=== PATIENT | female | born 1965 | race Caucasian/White ===

== ENCOUNTER 2020-06-07 07:26 | Outpatient (CLI) | payer OTHER, SELFPAY ==
--- NOTE | 2020-06-07 08:19 | ECG_ITS ---
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 Interpretive Statements NAME OF STUDY: LEXISCAN SESTAMIBI STRESS TEST INDICATION: Chest Pain, LEXISCAN STRESS TEST ORDERING PHYSICIAN: Unknown CLINICAL INFORMATION: Unknown INTERPRETATION: 1. The patient was brought to the laboratory where Lexiscan was infused over 20 seconds. The resting blood pressure was 151/95. Maximum blood pressure was 164/97. The resting heart rate was 71 beats per minute. The maximum heart rate is 101 beats per minute. 2. The baseline electrocardiogram reveals sinus rhythm with a right ventricular conduction delay but otherwise a normal tracing 3. With Lexiscan infusion, there were no ST segment changes to suggest ischemia. 4. The patient experienced no symptoms or arrhythmias during the examination. CONCLUSION: 1. Unremarkable Lexiscan infusion. 2. Nuclear imaging to follow. Electronically Signed On 06-07-2020 13:29:35 CDT by Deniz Escamilla M.D. [id number]
--- NOTE | 2020-06-07 08:21 | NMCV_ITS ---
NM iggy perf SPECT r/s* [id number] Lia Holm Age: 54 Gender: F : 1965 Exam Date: 06/07/2020 08:21 Ordering Phys: Daksha Judd Technologist: YON Campos Exam Location: [facility] Indications: CHEST PAIN STRESS TEST [facility] IMAGE PROTOCOL Rest/Stress 1 Lexiscan Day Radiopharmaceutical Dose (mCi) Administration Site Administered by Rest: Tc-99m 10.5 IV YON Campos Sestamibi Stress:Tc-99m 32.2 IV YON Russo Sestamibi Rest: 07-Jun-2020 60 Discovery 630 Stress: 07-Jun-2020 30 Discovery 630 0.4mg Lexiscan. Images obtained in supine and prone position. SPECT RESULTS Technical Quality: Excellent Raw Data Analysis: Normal Image Corrections: No attenuation or motion correction applied Summed Stress Score: 0 Summed Rest Score: 0 Summed Difference Score: 0 PERFUSION FINDINGS Small sized perfusion abnormality of mild severity of apical lateral wall on stress images FUNCTIONAL RESULTS (calculated via Gated SPECT) Stress Image LV EF (%): 77 Stress EDV (mL):78 TID: 0.98 Stress ESV (mL):18 FUNCTIONAL FINDINGS: The left ventricle is normal in size. Transient Ischemia Dilatation of 0.98. There is normal left ventricular systolic function. The left ventricular ejection fraction is normal with a value of 77%. There is normal left ventricular wall thickening. Normal end-diastolic and end-systolic volumes. IMPRESSIONS 1. Small sized reversible perfusion abnormality of mild severity of apical lateral wall. This may represent small area of ischemia in left anterior descending artery territory. However attenuation artifact cannot be completely ruled out. 2. Overall left ventricular systolic function is normal without regional wall motion abnormalities. 3. The left ventricular ejection fraction is normal with a value of 77%. 4. No prior similar studies to compare. Brenda Soto MD (Electronically Signed) Final Date: 10 June 2020 12:29 S
[2020-06-07 08:22] VITALS: BMI 35.6
[2020-06-07 09:51] VITALS: BP 164/97; PULSE 98
[2020-06-07] MEDS: regadenoson 0.4 Mg/5 ml Syringe IVP (09:51)
== END 2020-06-07 07:27 | disposition home or self-care (01) ==
PROVIDERS: Visit Provider Family Medicine
DX: R07.9 Chest pain, unspecified (principal)
CPT/HCPCS: 78452; 93017; A9500; J2785

== ENCOUNTER 2020-07-16 09:41 | Outpatient (CLI) | payer OTHER, SELFPAY ==
--- NOTE | 2020-07-16 09:47 | US_ITS ---
WS: [id number] RIGHT UPPER QUADRANT ULTRASOUND HISTORY: ATYPICAL CHEST PAIN/EPIGASTRIC PAIN COMPARISON: None available. Liver: 12.6 cm in length. Normal size liver. No mass or intrahepatic dilatation. Gallbladder: Stone filled gallbladder. No pericholecystic fluid or gallbladder wall thickening identi fied. CBD: 0.4 cm Pancreas: Normal size and echogenicity. Right kidney: 12.2 cm in length. Normal echogenicity with no mass or hydronephrosis. Aorta and IVC: Aorta. No ascites. US/US gall bladder [id number] IMPRESSION: 1. Cholelithiasis. Stone filled gallbladder without evidence for acute cholecy stitis. 2. No bile duct dilatation.
== END 2020-07-16 09:42 | disposition home or self-care (01) ==
LOC: RAD 09:43
PROVIDERS: PCP Family Medicine; Visit Provider Family Medicine
DX: R07.89 Other chest pain (principal); R10.13 Epigastric pain; K80.20 Calculus of gallbladder without cholecystitis without obstruction
CPT/HCPCS: 76705

== ENCOUNTER → 2020-10-14 10:06 | Outpatient (BNVA) | payer OTHER, SELFPAY | PROVIDERS: PCP Family Medicine; Visit Provider Nurse Practitioner Family | DX: Z20.828 Contact with and (suspected) exposure to other viral communicable diseases (principal); R43.0 Anosmia | CPT/HCPCS: 87635 ==

== ENCOUNTER 2022-03-11 21:12 | Emergency (ER) | payer OTHER, SELFPAY ==
[2022-03-11 21:21] VITALS: BP 167/105; PULSE 71; RESP 22; TEMP 36.6; O2SAT 95; BMI 38.4
--- NOTE | 2022-03-11 21:29 | W.ED.CHESTPA ---
HPI - Chest Pain General: Chief Complaint: Chest Pain Stated Complaint: Chest Pain\High Blood Pressure Time Seen by Provider: 03/11/22 21:28 History of Present Illness: Ms. Holm is a 56-year-old lady with history of hypertension who presents to the emergency department with chest pain. Symptom onset was about 7 PM and acute. She endorses a tight band around her chest associated with shortness of breath, diaphoresis, and nausea. This episode was moderate to severe in intensity and after approximately 30 minutes improved. She did notice hypertension associated with this with systolic blood pressure 210. She had similar episode a number of years ago and had a stress test at that time and was placed on beta-omi. Course is improved though still mildly present. No other specific changes in health, exacerbating, or alleviating factors identified. Patient took 162 mg of chewable aspirin at that time. Onset (ago): hour(s) Prior episodes: Yes Onset: during rest Pain location: substernal Severity: moderate Quality: tightness Relieving factors: nothing Exacerbating factors: nothing Associated symptoms: Reports diaphoresis, dyspnea and nausea Review of Systems General: Reports: 10 or more systems reviewed and unremarkable except in HPI and below Const: Reports: diaphoresis Resp: Reports: dyspnea GI: Reports: nausea PFSH ED PFSH: Medical History HTN (hypertension) Family History Other CAD (coronary artery disease) Denies family history of Clotting disorder Bleeding disorder Family history of premature coronary artery disease Social History Smoking and tobacco status: never smoked Physical Exam Const: COMMON NORMALS: alert GENERAL APPEARANCE: cooperative and well developed HENMT: COMMON NORMALS: normocephalic and atraumatic HEAD & SCALP: normocephalic and atraumatic Eye: COMMON NORMALS: conjunctivae normal CONJUNCTIVA: Yes conjunctivae normal SCLERA: sclerae normal Neck/C-Spine: COMMON NORMALS: supple GENERAL: Yes trachea midline Resp: COMMON NORMALS: clear to auscultation bilaterally EFFORT & INSPECTION: Yes able to speak in complete sentences AUSCULTATION: clear to auscultation bilaterally Cardio: COMMON NORMALS: regular rate and regular rhythm RATE: regular rate RHYTHM: regular rhythm GI: COMMON NORMALS: Soft to palpation PALPATION: Yes Soft to palpation and No Tenderness to palpation present (GI) PERCUSSION: normal to percussion Extremity: GENERAL: Yes normal exam except as noted and No edema Neuro: COMMON NORMALS: moves all extremities SENSORIUM/ORIENTATION: Yes alert and No Orientation impaired Psych: COMMON NORMALS: mental status grossly normal and Normal thought process present THOUGHT PROCESS: Normal thought process present Course ED course: - Patient was seen and evaluated by me at bedside - Patient placed on cardiac monitors, IV access obtained - Initial evaluation notable for exam as above - Labs and xrays personally interpreted by me. EKG from 2120 and 2325 personally interpreted by me demonstrating sinus rhythm with no evidence of STEMI. - Aspirin ordered - Labs notable for no leukocytosis, mild hemoconcentration. Metabolic panel without acute electrolyte derangement. Transaminitis. Delta troponin negative. - Imaging notable for no lobar consolidation or pneumothorax. - Upon serial reexamination after treatment the patient was improved - Based on patient history, evaluation, and testing as interpreted the most likely cause of the patient's condition is chest pain of uncertain etiology. - The results of ED evaluation were discussed with the patient including possible disposition options. Patient is moderate risk by heart score and I believe she does require further cardiac testing. I offered inpatient admission for stress test which the patient declined. I discussed heart score methodology and estimated risk of major adverse cardiac events. I offered to message case management regarding outpatient testing which the patient declined. She plans to discuss with her primary care provider. Additionally, with regards to the patient's transaminitis, I offered ultrasound of the right upper quadrant which the patient declined Overall clinical history is not consistent with cholecystitis and she does not have positive De La Fuente's on exam, more likely I believe that this may be related to fatty liver or other mild inflammatory process however I did recommend outpatient additional follow-up with her primary care provider for consideration of imaging. - I discussed prescriptions and/or symptomatic cares (if applicable) including appropriate and responsible use, followup plan, and return precautions. The patient verbalized understanding and felt safe for discharge. - Patient discharged in satisfactory condition. Note: Click bubbles or prepopulated rivera in note writing are used for assistance with data collection and billing and are inherently more limited than narrative and other text portions of this note. Please use narrative for additional clinical history and defer to narrative/free test for any case of contradictory information. If information appears in only free text or click bubble it should be considered present or absent as reported. Please contact note senior medical writer for clarifications of clinical information or contradictory information. MDM is a brief summary, contradictory or erroneous seeming information should be clarified and full note should be reviewed. Vital Signs: Vital signs: Vital Signs Temperature 97.8 F 03/11/22 21:21 Pulse Rate 65 03/12/22 00:27 Respiratory Rate 20 H 03/12/22 00:27 Blood Pressure 180/100 03/11/22 23:45 Pulse Oximetry 96 03/12/22 00:27 MDM - Chest Pain Medical Decision Making 56-year-old lady presenting to the emergency department due to chest pain. Symptoms improved at this time. Delta troponin negative. Offered admission however patient prefers outpatient follow-up and will schedule through primary care provider. Satisfactory for discharge with strict return precautions. Medical Records I reviewed the patient's medical records. Lab Data I reviewed the patient's lab results. : 03/11/22 21:39 03/11/22 21:39 Radiology Impressions Chest X-Ray 03/11/22 21:38 IMPRESSION: No acute findings. Laboratory Results WBC 10.0 10^3/uL (4.0-10.0) 03/11/22 21:39 RBC 5.48 10^6/uL (4.1-5.3) H 03/11/22 21:39 Hgb 16.0 g/dL (11.5-15.3) H 03/11/22 21:39 Hct 47.1 % (37.0-47.0) H 03/11/22 21:39 MCV 85.9 fl (81-99) 03/11/22 21:39 MCH 29.2 pg (28.0-34.0) 03/11/22 21:39 MCHC 34.0 g/dL (30.0-36.0) 03/11/22 21:39 RDW 12.2 % (12.1-15.1) 03/11/22 21:39 Plt Count 261 10^3/cmm (130-400) 03/11/22 21:39 MPV 10.1 fL (7.4-10.4) 03/11/22 21:39 Neut % (Auto) 76.7 % 03/11/22 21:39 Lymph % (Auto) 12.6 % 03/11/22 21:39 [place] % (Auto) 7.7 % 03/11/22 21:39 Eos % (Auto) 1.7 % 03/11/22 21:39 Baso % (Auto) 0.6 % 03/11/22 21:39 Neut # (Auto) 7.68 10^3/uL (1.8-7.7) 03/11/22 21:39 Lymph # (Auto) 1.3 10^3/uL (0.8-4.8) 03/11/22 21:39 [place]en # (Auto) 0.8 10^3/uL (0.2-0.9) 03/11/22 21:39 Eos # (Auto) 0.2 10^3/uL (0.0-0.8) 03/11/22 21:39 Baso # (Auto) 0.1 10^3/uL (0.0-0.1) 03/11/22 21:39 Nucleated RBC % (auto) 0 % 03/11/22 21:39 Nucleated RBCs # 0.0 /100WBC 03/11/22 21:39 Sodium 139 mmol/L (136-145) 03/11/22 21:39 Potassium 4.2 mmol/L (3.5-5.1) 03/11/22 21:39 Chloride 104 mmol/L (98-107) 03/11/22 21:39 Carbon Dioxide 23 mmol/L (22-29) 03/11/22 21:39 Anion Gap 16.2 (5-19) 03/11/22 21:39 BUN 12 mg/dL (6-20) 03/11/22 21:39 Creatinine 0.6 mg/dL (0.5-0.9) 03/11/22 21:39 GFR Calculation 103.4 mL/min (90-130) 03/11/22 21:39 Glucose 100 mg/dL (65-115) 03/11/22 21:39 Calculated Osmolality 288 mOsm/kg (285-295) 03/11/22 21:39 Calcium 9.2 mg/dL (8.5-10.5) 03/11/22 21:39 Total Bilirubin 0.5 mg/dL (0.15-1.2) 03/11/22 21:39 AST 53 U/L (0-32) H 03/11/22 21:39 ALT 39 U/L (0-33) H 03/11/22 21:39 Alkaline Phosphatase 140 IU/L (35-105) H 03/11/22 21:39 Troponin T Baseline 6 ng/L (0-10) 03/11/22 21:39 Troponin T 120 Minute 6.00 ng/L (0-10) 03/11/22 23:20 Delta Troponin T 0 ABS# (0-10) 03/11/22 23:20 NT-Pro-B Natriuret Pep 29 pg/mL (0-125) 03/11/22 21:39 Total Protein 7.3 g/dL (6.6-8.7) 03/11/22 21:39 Albumin 4.3 g/dL (3.5-5.2) 03/11/22 21:39 Globulin 3.0 g/dL (1.3-4.6) 03/11/22 21:39 Lipase 42 U/L (13-60) 03/11/22 21:39 Discharge Plan Discharge Patient Disposition: Home Clinical Impression: Chest pain, HTN (hypertension), Transaminitis Condition: Stable Discharge Orders: Discharge ED (Routine); Ordered 03/12/22 Ordered By: Adán Batres Referrals: Mohamud Craig DO [Primary Care Provider] - Discharge Diet: Usual diet Discharge Activity: Resume usual activity Patient Instructions: Chest Pain (ED), Hypertension (ED) Activity Restrictions/Additional Instructions: Thank you for visiting the emergency department. You were seen and evaluated for chest pain. The exact cause of your symptoms is unclear. As discussed I do believe that you need additional cardiac testing which you are electing to have in the outpatient setting. Please contact your primary care provider and have additional cardiac testing as discussed. Additionally, you may require further evaluation of mildly elevated liver enzymes. Please return to the emergency department for worsening symptoms or anything else that you are concerned about and feel needs emergency department evaluation. Coding Level of Care Code ED Residential Coordinator for Carlos Fwdaron Exam Comprehensive
--- NOTE | 2022-03-11 21:38 | XRR_ITS ---
PROCEDURE INFORMATION: Exam: XR Chest Exam date and time: 03/11/2022 9:46 PM Age: 56 years old Clinical indication: Pain; Angina pectoris; Additional info: Chest pain TECHNIQUE: Imaging protocol: XR of the chest. Views: 1 view. COMPARISON: No relevant prior studies available. FINDINGS: Lungs: Unremarkable. No consolidation. Pleural spaces: Unremarkable. No pleural effusion. No pneumothorax. Heart/Mediastinum: Unremarkable. No cardiomegaly. Bones/joints: Unremarkable. XR/XR chest 1V portable [id number] IMPRESSION: No acute findings.
--- NOTE | 2022-03-11 21:38 | ECG_ITS ---
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 Measurements Intervals [place] Rate: 70 P: 40 GA: 208 QRS: -4 QRSD: 97 T: 57 QT: 395 QTc: 426 Interpretive Statements SINUS RHYTHM MINIMAL VOLTAGE CRITERIA FOR LVH, CONSIDER NORMAL VARIANT [MEETS CRITERIA IN ONE OF: R(aVL), S(V1), R(V5), R(V5/V6)+S(V1)] NONSPECIFIC T-WAVE ABNORMALITY No previous ECG available for comparison Electronically Signed On 03-11-2022 23:29:27 CDT by Catherine Vega M.D. [id number]
[2022-03-11 21:39] VITALS: BP 188/113; PULSE 71; RESP 18; O2SAT 96
[2022-03-11 21:47] LABS: Basophils # 0.1 10^3/uL (0.0-0.1); Basophils % 0.6 %; Eosinophils # 0.2 10^3/uL (0.0-0.8); Eosinophils % 1.7 %; Hematocrit 47.1 % (37.0-47.0); Lymphocytes # 1.3 10^3/uL (0.8-4.8); Lymphocytes % 12.6 %; Mean Corpuscular Hemoglobin 29.2 pg (28.0-34.0); Mean Corpuscular Volume 85.9 fl (81-99); Mean Platelet Volume 10.1 fL (7.4-10.4); Monocytes # 0.8 10^3/uL (0.2-0.9); Monocytes % 7.7 %; Neutrophils # 7.68 10^3/uL (1.8-7.7); Neutrophils % 76.7 %; Nucleated Red Blood Cells % 0 %; Platelet Count 261 10^3/cmm (130-400); Red Blood Count 5.48 10^6/uL (4.1-5.3); Red Cell Distribution Width 12.2 % (12.1-15.1)
[2022-03-11 22:12] LABS: Troponin(5th) Baseline 6 ng/L (0-10)
[2022-03-11 22:19] LABS: Alanine Aminotransferase 39 U/L (0-33); Albumin Level 4.3 g/dL (3.5-5.2); Alkaline Phosphatase 140 IU/L (35-105); Blood Urea Nitrogen 12 mg/dL (6-20); Calcium 9.2 mg/dL (8.5-10.5); Carbon Dioxide 23 mmol/L (22-29); Chloride 104 mmol/L (98-107); Glomerular Filtration Rate 103.4 mL/min (90-130); Glucose 100 mg/dL (65-115); Lipase 42 U/L (13-60); NT Pro B Type Natriuretic Pept 29 pg/mL (0-125); Osmolality Calculated 288 mOsm/kg (285-295); Sodium 139 mmol/L (136-145); Total Bilirubin 0.5 mg/dL (0.15-1.2); Total Protein 7.3 g/dL (6.6-8.7)
[2022-03-11 22:20] LABS: Anion Gap 16.2 (5-19); Aspartate Amino Transferase 53 U/L (0-32); Potassium 4.2 mmol/L (3.5-5.1)
[2022-03-11 22:45] VITALS: BP 172/98; PULSE 73; RESP 18; O2SAT 95
[2022-03-11] MEDS: aspirin 81 mg Chew Tablet 324 MG PO (23:01)
--- NOTE | 2022-03-11 23:38 | ECG_ITS ---
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 Measurements Intervals Driver Rate: 58 P: 46 UT: 218 QRS: 0 QRSD: 101 T: 48 QT: 405 QTc: 400 Interpretive Statements SINUS BRADYCARDIA WITH FIRST DEGREE AV BLOCK NONSPECIFIC T-WAVE ABNORMALITY Compared to ECG 03/11/2022 21:21:28 First degree AV block now present Sinus rhythm no longer present T-wave abnormality still present Electronically Signed On 03-12-2022 18:15:04 CDT by Jagdish Montoya M.D. [id number]
[2022-03-11 23:45] VITALS: BP 180/100; PULSE 67; RESP 18; O2SAT 96
[2022-03-11 23:56] LABS: Troponin 5 2HR Delta 0 ABS# (0-10)
[2022-03-12 00:27] VITALS: PULSE 65; RESP 20; O2SAT 96
== END 2022-03-12 00:28 | disposition home or self-care (01) ==
PROVIDERS: Emergency Provider Emergency Medicine; PCP Family Medicine
DX: R07.9 Chest pain, unspecified (principal); I10 Essential (primary) hypertension; R74.01 Elevation of levels of liver transaminase levels
CPT/HCPCS: 71045; 80053; 83690; 83880; 84484; 85025; 93005; 99284

== ENCOUNTER 2022-05-04 08:40 | Outpatient (CLI) | payer OTHER, SELFPAY ==
--- NOTE | 2022-05-04 09:02 | US_ITS ---
WS: [id number] ULTRASOUND ABDOMEN CLINICAL INFORMATION: ELEVATED LIVER FUNCTION TEST/CHOLELITHIASIS COMPARISON: July 16, 2020 FINDINGS: Liver Size: Normal. Craniocaudal length: 13.5 cm. Echogenicity: Normal. Surface nodularity: None. Mass (size and location): None. Bile ducts Intrahepatic ducts: Normal. Common bile duct diameter: 0.6 cm. Gallbladder Cholelithiasis Gallstones: Present Gallbladder sludge: None. Gallbladder wall thickening: None. Pericholecystic fluid: None. Sonographic De Al Fuente sign: Absent. Pancreas Normal as visualized. Spleen Splenomegaly: None. Craniocaudal length: 10.8 cm. Right kidney: Normal. Hydronephrosis: None. Size: 11.9 cm x 5.3 cm x 4.0 cm Left kidney: Normal. Hydronephrosis: None. Size: 11.0 cm x 4.8 cm x 5.5 cm. Abdominal aorta and IVC Visualized portions are normal. Ascites: None. US/US abdomen complete* [id number] IMPRESSION: 1. Normal liver. 2. Large shadowing gallstones. No gallbladder wall thickening or pericholecyst ic fluid. This is similar to July 16, 2020. 3. Common bile duct measures 6 mm within normal limits. 4. No hydronephrosis in either kidney. 5. Normal spleen.
== END 2022-05-04 08:41 | disposition home or self-care (01) ==
PROVIDERS: PCP Family Medicine; Visit Provider Family Medicine
DX: R94.5 Abnormal results of liver function studies (principal); K80.20 Calculus of gallbladder without cholecystitis without obstruction
CPT/HCPCS: 76700

== ENCOUNTER 2022-05-21 10:26 | Outpatient (CLI) | payer OTHER, SELFPAY ==
[2022-05-21 10:58] VITALS: BMI 38.4
--- NOTE | 2022-05-21 10:59 | ECG_ITS ---
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 Interpretive Statements NAME OF STUDY: EXERCISE SESTAMIBI STRESS TEST INDICATION: Chest Pain, PROCEDURE: The baseline electrocardiogram showed normal sinus rhythm with normal ST-Ts poor R wave progression. Possible old inferior wall OH. Some nonspecific T wave changes. At the baseline, the patient's blood pressure was 143/92 mm Hg with a heart rate of 83. The patient exercised for 7 minutes and 6 seconds on a standard Greyson protocol. Patient attained a maximum heart rate of 163 beats per minute(99% of the maximum predicted heart rate) with a blood pressure at the peak exercise of 193/97 mm Hg. The EKG at the peak exercise revealed no significant changes. Patient did not have any chest pain or any significant arrhythmis with the exercise Sestamibi was injected 1 minute prior to the peak exercise During the recovery phase, there were no new changes. Blood pressure at the end of the recovery phase was 143/95 mm Hg with a heart rate of 96 per minute. CONCLUSION: 1. No significant EKG changes with the [treadmill exercise 2. No exercise-induced chest pain or cardiac arrhythmia 3. Fair exercise tolerance, attained a maximum of 10.2 METs 4. Sestamibi/Sestamibi perfusion results pending; see separate report. Electronically Signed On 05-22-2022 14:58:40 CDT by Catherine Vega M.D. [id number]
--- NOTE | 2022-05-21 10:59 | NMCV_ITS ---
NM iggy perf SPECT r/s* [id number] Lia Holm Age: 56 Gender: F : 1965 Exam Date: 05/21/2022 11:27 Ordering Phys: Mohamud Craig DO Technologist: YON Campos Exam Location: [facility] Indications: CHEST PAIN STRESS TEST Please see separate stress test report in [facility] for full findings IMAGE PROTOCOL Rest/Stress 1 Exercise Day Radiopharmaceutical Dose (mCi) Administration Site Administered by Rest: Tc-99m 11.0 IV YON Russo Sestamibi Stress:Tc-99m 33.0 IV YON Campos Sestamimiranda Rest: 05/21/2022 60 Discovery 630 Stress: 05/21/2022 15 Discovery 630 Radiopharmaceutical was injected at 92 % maximum heart rate. Images obtained in supine and prone position. SPECT RESULTS Technical Quality: Excellent Raw Data Analysis: Normal Image Corrections: No attenuation or motion correction applied Summed Stress Score: 2 Summed Rest Score: 2 Summed Difference Score: 2 PERFUSION FINDINGS A small area of moderately decreased tracer uptake was noted in the mid inferolateral region. Some reversibility was noted in this region in the supine imaging. However with the prone imaging, there was uniform myocardial tracer uptake FUNCTIONAL RESULTS (calculated via Gated SPECT) Stress Image LV EF (%): 89 Stress EDV (mL):57 TID: 0.64 Stress ESV (mL):6 FUNCTIONAL FINDINGS: Segmental wall motion analysis revealing no gross wall motion abnormalities IMPRESSIONS 1. Myocardial perfusion imaging revealing small area of reversible defect in the mid inferolateral region suggestive of ischemia in the distribution of the left circumflex artery. However because of the inconsistency with the prone imaging, this could be artifactual. 2. Normal ejection fraction of 89%. 3. LV wall motion analysis revealing no gross wall motion abnormalities. 4. Normal LV volume Compared to the previous study from 06/07/2020 the area of ischemia appears to be in a different segment, probably of the same artery Dr Catherine Vega MD [facility] (Electronically Signed) Final Date: 21 May 2022 17:04 S
[2022-05-21 13:01] VITALS: BP 143/95; PULSE 96
== END 2022-05-21 10:27 | disposition home or self-care (01) ==
PROVIDERS: PCP Family Medicine; Visit Provider Family Medicine
DX: R07.9 Chest pain, unspecified (principal)
CPT/HCPCS: 78452; 93017; A9500

== ENCOUNTER 2022-10-21 10:40 | Outpatient (CLI) | payer OTHER, SELFPAY ==
--- NOTE | 2022-10-21 10:15 | USCV_ITS ---
Lia Holm Age: 57 Gender: F : 1965 Exam Date: 10/21/2022 11:14 Ordering Phys: Catherine Vega MD ([email or web address]) Technologist: Michael Lee [place] [facility] [place]: CP BP: 166 / 98 HR: 59 Rhythm: Sinus Technical Quality: Adequate MEASUREMENTS (Male / Female) Normal Values 2D ECHO LV Diastolic Diameter PLAX 3.2 cm 4.2 - 5.9 / 3.9 - 5.3 cm LV Systolic Diameter PLAX 1.9 cm IVS Diastolic Thickness 0.9 cm 0.6 - 1.0 / 0.6 - 0.9 cm IVS Systolic Thickness 1.2 cm LVPW Diastolic Thickness 1.0 cm 0.6 - 1.0 / 0.6 - 0.9 cm LVPW Systolic Thickness 1.0 cm LVOT Diameter 2.0 cm LV Ejection Fraction 2D Teich 71.7 % LV Ejection Fraction MOD 2C 70.4 % LV Ejection Fraction 2C AL 69.4 % LA Diameter 3.2 cm LA Width 3.0 cm LA Height 3.9 cm RA Width 3.2 cm RA Height 4.2 cm Aorta at Sinotubular Diameter 2.0 cm IVC Diameter 1.4 cm M-MODE Aortic Annulus Diameter 2.6 cm LA Ao Ratio MM 1.3 MV E Point Septal Separation 0.4 cm DOPPLER AV Peak Velocity 130.7 cm/s LVOT Peak Velocity 87.0 cm/s AV Area Cont Eq vti 2.1 cm squared AV Area Cont Eq pk 2.1 cm squared MV Peak Velocity 89.0 cm/s MV Area PHT 4.2 cm squared Mitral E to A Ratio 0.9 MV E' Velocity 34.5 cm/s Mitral E to MV E' Ratio 6.4 Mitral E to LV E' Lateral Ratio 7.3 Mitral E to LV E' Septal Ratio 5.8 TR Peak Velocity 206.0 cm/s TR Peak Gradient 17.0 mmHg TR Mean Velocity 158.3 cm/s TR Mean Gradient 11.0 mmHg TR Velocity Time Integral 58.8 cm Right Atrial Pressure 3.0 mmHg Pulmonary Artery Systolic Pressu 20.0 mmHg PV Peak Velocity 76.3 cm/s RV Acceleration Time 0.2 s RV Ejection Time 0.3 s RV AcT/ET 0.5 FINDINGS Left Ventricle Normal left ventricular size and systolic function, EF 71 %. No regional wall motion abnormalities. Grade I/IV diastolic dysfunction (abnormal relaxation filling pattern), normal to mildly elevated filling pressures. Right Ventricle The right ventricle is normal in size and function. Right Atrium The right atrium is normal in size. Left Atrium The left atrium is normal in size. Mitral Valve Thickened mitral valve. Mild mitral valve regurgitation. Aortic Valve No gross abnormalities noted Tricuspid Valve Trace tricuspid valve regurgitation. Pulmonic Valve Trace to mild pulmonary valve regurgitation. Pericardium Normal pericardium without effusion. Aorta Normal ascending aorta dimension. IVC The inferior vena cava appears normal. CONCLUSIONS Normal left ventricular size and systolic function, EF 71 %. No regional wall motion abnormalities. Grade I/IV diastolic dysfunction (abnormal relaxation filling pattern), normal to mildly elevated filling pressures. Thickened mitral valve. Mild mitral valve regurgitation. Trace tricuspid valve regurgitation. Estimated pulmonary artery peak systolic pressure within normal limits. Trace to mild pulmonary valve regurgitation. Normal pericardium without effusion. No similar previous studies are available for comparison Dr Catherine Vega MD [facility] (Electronically Signed) Final Date: 22 October 2022 08:26 S
== END 2022-10-21 10:41 | disposition home or self-care (01) ==
LOC: RAD 10:41
PROVIDERS: PCP Family Medicine; Visit Provider Internal Medicine Cardiovascular Disease
DX: I08.1 Rheumatic disorders of both mitral and tricuspid valves (principal); R06.09 Other forms of dyspnea; R94.39 Abnormal result of other cardiovascular function study
CPT/HCPCS: 93306

== ENCOUNTER → 2023-08-12 09:16 | Outpatient (BNVA) | payer OTHER, SELFPAY | PROVIDERS: PCP Family Medicine; Visit Provider Family Medicine | DX: Z01.818 Encounter for other preprocedural examination (principal); G47.33 Obstructive sleep apnea (adult) (pediatric); E03.9 Hypothyroidism, unspecified; E66.9 Obesity, unspecified | CPT/HCPCS: 80053; 83036; 84443; 85025 ==

== ENCOUNTER 2024-07-16 22:29 | Emergency (ER) | payer OTHER, SELFPAY ==
[2024-07-16 22:34] VITALS: BP 117/94; PULSE 69; RESP 18; TEMP 36.7; O2SAT 97; BMI 32.0
--- NOTE | 2024-07-16 22:38 | ED_ITS ---
Documented by User: CARMEN Wharton 07/17/24 00:31 HPI - Abdominal Pain 2 General: Chief Complaint: Abdominal Pain Stated Complaint: epigastric pain Time Seen by Provider: 07/16/24 22:30 History of Present Illness: 59-year-old female comes in today for co mplaints of epigastric pain. Patient reports that she about 2 hours ago was doing laundry and started having sudden sharp pain in her epigastric area of her abdomen radiating up into her chest and back. Patient believes that she may have had a gallbladder attack. Patient had a gastric sleeve in January and has lost 50 pounds. Patient appears nontoxic. Patient appears in mild pain at this time. Patient was brought in by EMS and had been given 4 mg of Zofran and 50 mcg of fentanyl and route. Patient takes medications routinely for estrogen replacement, thyroid disorder, and blood pressure. Patient's other surgeries include a and ORIF of the left leg. Associated Symptoms: Reports nausea Related Data Previous Rx's Medication Instructions Recorded fluoxetine 40 mg capsule See Rx Instructions .Route 12/31/23 .COMPLEX #90 caps metoprolol succinate 50 mg 50 mg PO DAILY #90 tabs 02/11/24 tablet,extended release 24 hr levothyroxine 137 mcg tablet See Rx Instructions .Route 02/29/24 .COMPLEX #90 tabs estradiol 0.5 mg tablet See Rx Instructions .Route 06/22/24 .COMPLEX #90 tabs losartan 100 mg tablet 100 mg PO QAM #90 tabs 06/22/24 medroxyprogesterone 5 mg tablet See Rx Instructions .Route 06/22/24 .COMPLEX #45 tabs Allergies Allergy/AdvReac Type Severity Reaction Status Date / Time Sulfa (Sulfonamide Allergy rash Verified 07/16/24 22:41 Antibiotics) Review of Systems 2 General: Reports: 10 or more systems reviewed and unremarkable except in HPI and below GI: Reports: abdominal pain and nausea PFSH ED 2 PFSH: Medical History (Updated 07/17/24 @ 00:27 by CARMEN Wharton) Encounter for preoperative assessment HTN (hypertension) Family History Grandfather CAD (coronary artery disease) Grandmother CAD (coronary artery disease) Cancer Stroke Grandfather CAD (coronary artery disease) Grandmother CAD (coronary artery disease) Family/Other Diabetes Father Lung disease Denies family history of Clotting disorder Dementia Chronic kidney disease (CKD) Suicide Anesthesia complication Bleeding disorder Family history of premature coronary artery disease Social History Smoking and tobacco/nicotine status: never used tobacco/nicotine Alcohol intake: never Substance/Drug Use: never Adopted: No Lives independently: Yes Household members: spouse Housing: House Marital status: Number of children: 2 Number of grandchildren: 6 Highest education level completed: Associate Degree: Academic Program service: No Current occupational status: employed Pets and animals: Yes Do you think of yourself as: Straight/Heterosexual Current gender identity: Female Physical Exam 2 Const: COMMON NORMALS: alert HENMT: COMMON NORMALS: normocephalic HEAD & SCALP: normocephalic Neck/C-Spine: COMMON NORMALS: full ROM Resp: COMMON NORMALS: normal respiratory effort and clear to auscultation bilaterally AUSCULTATION: clear to auscultation bilaterally Cardio: COMMON NORMALS: regular rate and regular rhythm RATE: regular rate RHYTHM: regular rhythm GI: COMMON NORMALS: Soft to palpation PALPATION: Yes Soft to palpation and Yes Tenderness to palpation present (GI) (Epigastric) Back/Pelvis: COMMON NORMALS: thoracic and lumbar spine normal to inspection Extremity: COMMON NORMALS: full ROM Neuro: SENSORIUM/ORIENTATION: Yes alert Skin: COMMON NORMALS: turgor normal GENERAL SKIN EXAM: turgor normal Course 2 Vital Signs: Vital signs: Vital Signs Temperature 98.0 F 07/16/24 22:34 Pulse Rate 62 07/17/24 00:47 Respiratory Rate 16 07/17/24 00:47 Blood Pressure 179/98 07/17/24 00:47 Pulse Oximetry 97 07/17/24 00:47 Oxygen Delivery Me thod Room Air 07/17/24 00:16 MDM - Abdominal Pain Medical Decision Making 59-year-old female comes in today for complaints of epigastric pain radiating to the chest and back. Patient appears nontoxic. Patient appears no acute distress. Respirations are even lungs are clear to auscultation. Abdomen soft with some epigastric tenderness. Bowel sounds are present. Skin is warm and dry. Vital signs are normal. Differential diagnosis includes not limited to ACS, esophagitis, GERD, pancreatitis, cholecystitis, cholelithiasis. CBC showed some mild elevation in white count of 14,000. CMP did show some mild elevation in liver enzymes and lipase. Bilirubin was normal. CT noted gallstones. There is no signs of bowel obstruction or inflammatory process within the abdomen. Patient did have a simple appearing cyst noted on the pancreas. Reviewed exam with patient with recommendation for treatment and follow-up with surgeon for further evaluation and removal of gallbladder. Case management was requested to assist with follow-up appointment. Patient reported understanding and agreed to plan. Lab Data 07/16/24 22:41 07/16/24 22:41 Labs/Radiology: Radiology Impressions Abdomen/Pelvis CT 07/16/24 22:38 IMPRESSION: 1. No bowel obstruction or inflammatory process associated with the bowel. 2. No free air or significant free fluid in the abdomen or pelvis. 3. No evidence of appendicitis. 4. There is a 1.6 x 1.0 cm simple appearing cyst in the body of the pancreas.Reimaging every 6 months for 2 years, then every 1 year for 2 years, then every 2 years for 6 years is recommended. Alternatively, endoscopic ultrasound with fine needle aspiration is recommended. (Reference: Laxmi, 2017) REFERENCES: Laxmi PONCE, et al. Management of Incidental Pancreatic Cysts: A White Paper of the ACR Incidental Findings Committee. J Am Gemini Radiol. 2017;14(7):911-923. Chest X-Ray 07/16/24 22:38 IMPRESSION: No acute findings. Laboratory Results WBC 14.07 10^3/uL (3.29-11.43) H 07/16/24 22:41 RBC 5.15 10^6/uL (3.85-5.65) 07/16/24 22:41 Hgb 15.50 g/dL (11.27-16.99) 07/16/24 22:41 Hct 44.5 % (36-47) 07/16/24 22:41 MCV 86.4 fl (85-98) 07/16/24 22:41 MCH 30.1 pg (27-33) 07/16/24 22:41 MCHC 34.8 g/dL (30-55) 07/16/24 22:41 RDW 12.3 % (12.1-15.1) 07/16/24 22:41 Plt Count 253 10^3/cmm (157-399) 07/16/24 22:41 MPV 9.9 fL (7.4-10.4) 07/16/24 22:41 Neut % (Auto) 83.6 % 07/16/24 22:41 Lymph % (Auto) 8.7 % 07/16/24 22:41 Burnett % (Auto) 6.0 % 07/16/24 22:41 Eos % (Auto) 0.9 % 07/16/24 22:41 Baso % (Auto) 0.3 % 07/16/24 22:41 Neut # (Auto) 11.77 10^3/uL (1.8-7.7) H 07/16/24 22:41 Lymph # (Auto) 1.2 10^3/uL (0.8-4.8) 07/16/24 22:41 Burnett # (Auto) 0.9 10^3/uL (0.2-0.9) 07/16/24 22:41 Eos # (Auto) 0.1 10^3/uL (0.0-0.8) 07/16/24 22:41 Baso # (Auto) 0.0 10^3/uL (0.0-0.1) 07/16/24 22:41 Nucleated RBC % (auto) 0 % 07/16/24 22:41 Nucleated RBCs # 0.0 /100WBC 07/16/24 22:41 Sodium 143 mmol/L (136-145) 07/16/24 22:41 Potassium 3.7 mmol/L (3.5-5.1) 07/16/24 22:41 Chloride 109 mmol/L (98-107) H 07/16/24 22:41 Carbon Dioxide 22 mmol/L (22-29) 07/16/24 22:41 Anion Gap 15.7 (5-19) 07/16/24 22:41 BUN 13 mg/dL (6-20) 07/16/24 22:41 Creatinine 0.6 mg/dL (0.5-0.9) 07/16/24 22:41 GFR Calculation 102.3 mL/min (90-130) 07/16/24 22:41 Glucose 113 mg/dL (65-115) 07/16/24 22:41 Calculated Osmolality 297 mOsm/kg (285-295) H 07/16/24 22:41 Calcium 8.9 mg/dL (8.5-10.5) 07/16/24 22:41 Total Bilirubin 0.7 mg/dL (0.15-1.2) 07/16/24 22:41 AST 111 U/L (0-32) H 07/16/24 22:41 ALT 53 U/L (0-33) H 07/16/24 22:41 Alkaline Phosphatase 154 U/L (35-105) H 07/16/24 22:41 Troponin T Baseline < 6 ng/L (0-10) 07/16/24 22:41 Total Protein 6.0 g/dL (6.6-8.7) L 07/16/24 22:41 Albumin 4.2 g/dL (3.5-5.2) 07/16/24 22:41 Globulin 1.8 g/dL (1.3-4.6) 07/16/24 22:41 Lipase 262 U/L (13-60) H 07/16/24 22:41 Urine Color Yellow (Yellow) 07/17/24 00:08 Urine Appearance Clear (CLEAR) 07/17/24 00:08 Urine pH 5.5 (5-7) 07/17/24 00:08 Ur Specific [place] >= 1.099 (1.005-1.030) H 07/17/24 00:08 Urine Protein 1+ (Negative) A 07/17/24 00:08 Urine Glucose (UA) Negative (Normal) 07/17/24 00:08 Urine Ketones Trace (Negative) 07/17/24 00:08 Urine Blood Negative (Negative) 07/17/24 00:08 Urine Nitrate Negative (Negative) 07/17/24 00:08 Urine Bilirubin Negative (Negative) 07/17/24 00:08 Urine Urobilinogen 1.0 mg/dL (Negative) 07/17/24 00:08 Ur Leukocyte Esterase Negative (Negative) 07/17/24 00:08 Urine RBC 0-4 /hpf (0-2) H 07/17/24 00:08 Urine WBC 5-10 /hpf (0-5) H 07/17/24 00:08 Ur Squamous Epith Cells 5-10 /hpf (0-5) H 08/19/24 00:08 Amorphous Sediment Trace /hpf 08/19/24 00:08 Urine Bacteria 1+ /hpf (NONE) H 07/17/24 00:08 Hyaline Casts 0-4 /lpf H 07/17/24 00:08 All radiology interpretation(s) finalized by discharge EKG Data EKG 1: I personally reviewed and interpreted this EKG as follows: EKG interpretation date: 07/16/24 EKG interpretation time: 22:47 Prior EKG tracings: not available for review Interpretation: EKG shows a sinus rhythm, no ST elevation or ectopy is noted. No prior exam was available for comparison. Patient has a regular rate at 65 bpm. Computer generated interpretation: Sinus rhythm, moderate voltage criteria for LVH consider normal variant, borderline EKG, unconfirmed report. Discharge Plan Discharge Patient Disposition: Home Clinical Impression: Cholelithiases Qualifiers: Cholelithiasis location: gallbladder Cholecystitis presence: without cholecystitis Biliary obstruction: without biliary obstruction Qualified Code(s): K80.20 - Calculus of gallbladder without cholecystitis without obstruction Condition: Stable Prescriptions: No Action fluoxetine 40 mg capsule See Rx Instructions .ROUTE .COMPLEX Qty: 90 1RF Dose Instruction: TAKE ONE CAPSULE BY MOUTH DAILY Rx Instructions: TAKE ONE CAPSULE BY MOUTH DAILY metoprolol succinate 50 mg tablet extended release 24 hr 50 mg PO DAILY Qty: 90 2RF levothyroxine 137 mcg tablet See Rx Instructions .ROUTE .COMPLEX Qty: 90 3RF Dose Instruction: TAKE ONE TABLET BY MOUTH EVERY DAY FOR THYROID Rx Instructions: TAKE ONE TABLET BY MOUTH EVERY DAY FOR THYROID losartan 100 mg tablet 100 mg PO QAM Qty: 90 3RF medroxyprogesterone 5 mg tablet See Rx Instructions .ROUTE .COMPLEX Qty: 45 3RF Dose Instruction: TAKE 1/2 TABLET BY MOUTH EVERY DAY Rx Instructions: TAKE 1/2 TABLET BY MOUTH EVERY DAY estradiol 0.5 mg tablet See Rx Instructions .ROUTE .COMPLEX Qty: 90 3RF Dose Instruction: TAKE ONE TABLET BY MOUTH EVERY DAY Rx Instructions: TAKE ONE TABLET BY MOUTH EVERY DAY Discharge Orders: Discharge ED (Routine); Ordered 07/17/24 Ordered By: Renny Florez Referrals: Mohamud Craig, [Primary Care Provider] - Discharge Diet: Usual diet Discharge Activity: Increase activity as tolerated Patient Instructions: Cholelithiasis Activity Restrictions/Additional Instructions: Home and rest. Use hydrocodone as needed for severe pain. Use Tylenol and ibuprofen for other pain. Use ondansetron as needed for nausea. Follow-up with surgeon for further evaluation and treatment for removal of gallbladder. Return to ER for worsening symptoms such as high fever greater than 100.4, yellowing of the skin or eyes, severe abdominal pain, or new concerns. Coding Level of Care Code ED Imaging System Administrator for Chg Fwd Documented by User: Agus Ewing DO 07/17/24 01:06 HPI - Abdominal Pain 2 General: Chief Complaint: Abdominal Pain Stated Complaint: epigastric pain Time Seen by Provider: 07/16/24 22:30 Related Data Previous Rx's Medication Instructions Recorded fluoxetine 40 mg capsule See Rx Instructions .Route 12/31/23 .COMPLEX #90 caps metoprolol succinate 50 mg 50 mg PO DAILY #90 tabs 02/11/24 tablet,extended release 24 hr levothyroxine 137 mcg tablet See Rx Instructions .Route 02/29/24 .COMPLEX #90 tabs estradiol 0.5 mg tablet See Rx Instructions .Route 06/22/24 .COMPLEX #90 tabs losartan 100 mg tablet 100 mg PO QAM #90 tabs 06/22/24 medroxyprogesterone 5 mg tablet See Rx Instructions .Route 06/22/24 .COMPLEX #45 tabs Allergies Allergy/AdvReac Type Severity Reaction Status Date / Time Sulfa (Sulfonamide Allergy rash Verified 07/16/24 22:41 Antibiotics) [facility] ED 2 PFS: Medical History (Updated 07/17/24 @ 00:27 by CARMEN Wharton) Encounter for preoperative assessment HTN (hypertension) Family History Grandfather CAD (coronary artery disease) Grandmother CAD (coronary artery disease) Cancer Stroke Grandfather CAD (coronary artery disease) Grandmother CAD (coronary artery disease) Family/Other Diabetes Father Lung disease Denies family history of Clotting disorder Dementia Chronic kidney disease (CKD) Suicide Anesthesia complication Bleeding disorder Family history of premature coronary artery disease Social History Smoking and tobacco/nicotine status: never used tobacco/nicotine Alcohol intake: never Substance/Drug Use: never Adopted: No Lives independently: Yes Household members: spouse Housing: House Marital status: Number of children: 2 Number of grandchildren: 6 Highest education level completed: Associate Degree: Academic Program service: No Current occupational status: employed Pets and animals: Yes Do you think of yourself as: Straight/Heterosexual Current gender identity: Female Course 2 Vital Signs: Vital signs: Vital Signs Temperature 98.0 F 07/16/24 22:34 Pulse Rate 62 07/17/24 00:47 Respiratory Rate 16 07/17/24 00:47 Blood Pressure 179/98 07/17/24 00:47 Pulse Oximetry 97 07/17/24 00:47 Oxygen Delivery Me thod Room Air 07/17/24 00:16 MDM - Abdominal Pain Medical Decision Making 59-year-old female comes in today for complaints of epigastric pain radiating to the chest and back. Patient appears nontoxic. Patient appears no acute distress. Respirations are even lungs are clear to auscultation. Abdomen soft with some epigastric tenderness. Bowel sounds are present. Skin is warm and dry. Vital signs are normal. Differential diagnosis includes not limited to ACS, esophagitis, GERD, pancreatitis, cholecystitis, cholelithiasis. CBC showed some mild elevation in white count of 14,000. CMP did show some mild elevation in liver enzymes and lipase. Bilirubin was normal. CT noted gallstones. There is no signs of bowel obstruction or inflammatory process within the abdomen. Patient did have a simple appearing cyst noted on the pancreas. Reviewed exam with patient with recommendation for treatment and follow-up with surgeon for further evaluation and removal of gallbladder. Case management was requested to assist with follow-up appointment. Patient reported understanding and agreed to plan. This patient was originally seen by CARMEN Wren.? I agree with his history, evaluation, and treatment. Lab Data 07/16/24 22:41 07/16/24 22:41 Labs/Radiology: Radiology Impressions Abdomen/Pelvis CT 07/16/24 22:38 IMPRESSION: 1. No bowel obstruction or inflammatory process associated with the bowel. 2. No free air or significant free fluid in the abdomen or pelvis. 3. No evidence of appendicitis. 4. There is a 1.6 x 1.0 cm simple appearing cyst in the body of the pancreas.Reimaging every 6 months for 2 years, then every 1 year for 2 years, then every 2 years for 6 years is recommended. Alternatively, endoscopic ultrasound with fine needle aspiration is recommended. (Reference: Laxmi, 2017) REFERENCES: Laxmi PONCE, et al. Management of Incidental Pancreatic Cysts: A White Paper of the ACR Incidental Findings Committee. J Am Gemini Radiol. 2017;14(7):911-923. Chest X-Ray 07/16/24 22:38 IMPRESSION: No acute findings. Laboratory Results WBC 14.07 10^3/uL (3.29-11.43) H 07/16/24 22:41 RBC 5.15 10^6/uL (3.85-5.65) 07/16/24 22:41 Hgb 15.50 g/dL (11.27-16.99) 07/16/24 22:41 Hct 44.5 % (36-47) 07/16/24 22:41 MCV 86.4 fl (85-98) 07/16/24 22:41 MCH 30.1 pg (27-33) 07/16/24 22:41 MCHC 34.8 g/dL (30-55) 07/16/24 22:41 RDW 12.3 % (12.1-15.1) 07/16/24 22:41 Plt Count 253 10^3/cmm (157-399) 07/16/24 22:41 MPV 9.9 fL (7.4-10.4) 07/16/24 22:41 Neut % (Auto) 83.6 % 07/16/24 22:41 Lymph % (Auto) 8.7 % 07/16/24 22:41 Burnett % (Auto) 6.0 % 07/16/24 22:41 Eos % (Auto) 0.9 % 07/16/24 22:41 Baso % (Auto) 0.3 % 07/16/24 22:41 Neut # (Auto) 11.77 10^3/uL (1.8-7.7) H 07/16/24 22:41 Lymph # (Auto) 1.2 10^3/uL (0.8-4.8) 07/16/24 22:41 Burnett # (Auto) 0.9 10^3/uL (0.2-0.9) 07/16/24 22:41 Eos # (Auto) 0.1 10^3/uL (0.0-0.8) 07/16/24 22:41 Baso # (Auto) 0.0 10^3/uL (0.0-0.1) 07/16/24 22:41 Nucleated RBC % (auto) 0 % 07/16/24 22:41 Nucleated RBCs # 0.0 /100WBC 07/16/24 22:41 Sodium 143 mmol/L (136-145) 07/16/24 22:41 Potassium 3.7 mmol/L (3.5-5.1) 07/16/24 22:41 Chloride 109 mmol/L (98-107) H 07/16/24 22:41 Carbon Dioxide 22 mmol/L (22-29) 07/16/24 22:41 Anion Gap 15.7 (5-19) 07/16/24 22:41 BUN 13 mg/dL (6-20) 07/16/24 22:41 Creatinine 0.6 mg/dL (0.5-0.9) 07/16/24 22:41 GFR Calculation 102.3 mL/min (90-130) 07/16/24 22:41 Glucose 113 mg/dL (65-115) 07/16/24 22:41 Calculated Osmolality 297 mOsm/kg (285-295) H 07/16/24 22:41 Calcium 8.9 mg/dL (8.5-10.5) 07/16/24 22:41 Total Bilirubin 0.7 mg/dL (0.15-1.2) 07/16/24 22:41 AST 111 U/L (0-32) H 07/16/24 22:41 ALT 53 U/L (0-33) H 07/16/24 22:41 Alkaline Phosphatase 154 U/L (35-105) H 07/16/24 22:41 Troponin T Baseline < 6 ng/L (0-10) 07/16/24 22:41 Total Protein 6.0 g/dL (6.6-8.7) L 07/16/24 22:41 Albumin 4.2 g/dL (3.5-5.2) 07/16/24 22:41 Globulin 1.8 g/dL (1.3-4.6) 07/16/24 22:41 Lipase 262 U/L (13-60) H 07/16/24 22:41 Urine Color Yellow (Yellow) 07/17/24 00:08 Urine Appearance Clear (CLEAR) 07/17/24 00:08 Urine pH 5.5 (5-7) 07/17/24 00:08 Ur Specific [place] >= 1.099 (1.005-1.030) H 07/17/24 00:08 Urine Protein 1+ (Negative) A 07/17/24 00:08 Urine Glucose (UA) Negative (Normal) 07/17/24 00:08 Urine Ketones Trace (Negative) 07/17/24 00:08 Urine Blood Negative (Negative) 07/17/24 00:08 Urine Nitrate Negative (Negative) 07/17/24 00:08 Urine Bilirubin Negative (Negative) 07/17/24 00:08 Urine Urobilinogen 1.0 mg/dL (Negative) 07/17/24 00:08 Ur Leukocyte Esterase Negative (Negative) 07/17/24 00:08 Urine RBC 0-4 /hpf (0-2) H 07/17/24 00:08 Urine WBC 5-10 /hpf (0-5) H 07/17/24 00:08 Ur Squamous Epith Cells 5-10 /hpf (0-5) H 07/17/24 00:08 Amorphous Sediment Trace /hpf 07/17/24 00:08 Urine Bacteria 1+ /hpf (NONE) H 07/17/24 00:08 Hyaline Casts 0-4 /lpf H 07/17/24 00:08 Discharge Plan Discharge Patient Disposition: Home Clinical Impression: Cholelithiases Qualifiers: Cholelithiasis location: gallbladder Cholecystitis presence: without cholecystitis Biliary obstruction: without biliary obstruction Qualified Code(s): K80.20 - Calculus of gallbladder without cholecystitis without obstruction Condition: Stable Prescriptions: No Action fluoxetine 40 mg capsule See Rx Instructions .ROUTE .COMPLEX Qty: 90 1RF Dose Instruction: TAKE ONE CAPSULE BY MOUTH DAILY Rx Instructions: TAKE ONE CAPSULE BY MOUTH DAILY metoprolol succinate 50 mg tablet extended release 24 hr 50 mg PO DAILY Qty: 90 2RF levothyroxine 137 mcg tablet See Rx Instructions .ROUTE .COMPLEX Qty: 90 3RF Dose Instruction: TAKE ONE TABLET BY MOUTH EVERY DAY FOR THYROID Rx Instructions: TAKE ONE TABLET BY MOUTH EVERY DAY FOR THYROID losartan 100 mg tablet 100 mg PO QAM Qty: 90 3RF medroxyprogesterone 5 mg tablet See Rx Instructions .ROUTE .COMPLEX Qty: 45 3RF Dose Instruction: TAKE 1/2 TABLET BY MOUTH EVERY DAY Rx Instructions: TAKE 1/2 TABLET BY MOUTH EVERY DAY estradiol 0.5 mg tablet See Rx Instructions .ROUTE .COMPLEX Qty: 90 3RF Dose Instruction: TAKE ONE TABLET BY MOUTH EVERY DAY Rx Instructions: TAKE ONE TABLET BY MOUTH EVERY DAY Discharge Orders: Discharge ED (Routine); Ordered 07/17/24 Ordered By: Renny Florez Referrals: Mohamud Craig DO [Primary Care Provider] - Discharge Diet: Usual diet Discharge Activity: Increase activity as tolerated Patient Instructions: Cholelithiasis Activity Restrictions/Additional Instructions: Home and rest. Use hydrocodone as needed for severe pain. Use Tylenol and ibuprofen for other pain. Use ondansetron as needed for nausea. Follow-up with surgeon for further evaluation and treatment for removal of gallbladder. Return to ER for worsening symptoms such as high fever greater than 100.4, yellowing of the skin or eyes, severe abdominal pain, or new concerns. Coding Level of Care Code ED Imaging System Administrator for Carlos Narayanan
--- NOTE | 2024-07-16 22:38 | CTR_ITS ---
PROCEDURE INFORMATION: Exam: CT Abdomen And Pelvis With Contrast Exam date and time: 07/16/2024 11:03 PM Age: 59 years old Clinical indication: Abdominal pain; Prior surgery; Surgery date: 6+ months; Surgery type: Gastric sleeve; Patient HX: C/O sudden epigastric pain TECHNIQUE: Imaging protocol: Computed tomography of the abdomen and pelvis with contrast. Radiation optimization: All CT scans at this facility use at least one of these dose optimization techniques: automated exposure control; mA and/or kV adjustment per patient size (includes targeted exams where dose is matched to clinical indication); or iterative reconstruction. Contrast material: OMNI 350; Contrast volume: 100 ml; Contrast route: INTRAVENOUS (IV); COMPARISON: US abdomen complete* [id number] 05/04/2022 9:14 AM RADIATION DOSE METRICS: Total DLP (mGy-cm): 729.27 FINDINGS: Liver: Normal. No mass. Gallbladder and biliary ducts: Multiple calcified and non calcified stones in the gallbladder. Pancreas: There is a 1.6 x 1.0 cm simple appearing cyst in the body of the pancreas. Spleen: Multiple punctate calcifications in the spleen consistent with prior granulomatous infection. Adrenal glands: Normal. No mass. Kidneys and ureters: Normal. No hydronephrosis. Stomach and bowel: Prior gastric sleeve. Appendix: No evidence of appendicitis. Intraperitoneal space: Unremarkable. No free air. No significant fluid collection. Vasculature: Unremarkable. No abdominal aortic aneurysm. Lymph nodes: Unremarkable. No enlarged lymph nodes. Urinary bladder: Unremarkable as visualized. Reproductive: Unremarkable as visualized. Bones/joints: Unremarkable. No acute fracture. Soft tissues: Unremarkable. CT/CT abdomen pelvis w con* [id number] IMPRESSION: 1. No bowel obstruction or inflammatory process associated with the bowel. 2. No free air or significant free fluid in the abdomen or pelvis. 3. No evidence of appendicitis. 4. There is a 1.6 x 1.0 cm simple appearing cyst in the body of the pancreas.Reimaging every 6 months for 2 years, then every 1 year for 2 years, then every 2 years for 6 years is recommended. Alternatively, endoscopic ultrasound with fine needle aspiration is recommended. (Reference: Laxmi, 2017) REFERENCES: Laxmi PONCE, et al. Management of Incidental Pancreatic Cysts: A White Paper of the ACR Incidental Findings Committee. J Am Gemini Radiol. 2017;14(7):911-923.
--- NOTE | 2024-07-16 22:38 | XRR_ITS ---
PROCEDURE INFORMATION: Exam: XR Chest Exam date and time: 07/16/2024 10:56 PM Age: 59 years old Clinical indication: Chest pressure; Prior surgery; Surgery date: 6+ months; Surgery type: Gastric sleeve; Patient HX: C/O chest /epigastric pain; Additional info: Ches pain TECHNIQUE: Imaging protocol: Radiologic exam of the chest. Views: 1 view. COMPARISON: CR XR chest 1V portable [id number] 03/11/2022 9:46 PM FINDINGS: Lungs: Unremarkable. No consolidation. Pleural spaces: Unremarkable. No pleural effusion. No pneumothorax. Heart/Mediastinum: Unremarkable. No cardiomegaly. Bones/joints: Unremarkable. XR/XR chest 1V portable [id number] IMPRESSION: No acute findings.
[2024-07-16 22:44] LABS: Basophils % 0.3 %; Eosinophils # 0.1 10^3/uL (0.0-0.8); Eosinophils % 0.9 %; Hematocrit 44.5 % (36-47); Lymphocytes # 1.2 10^3/uL (0.8-4.8); Lymphocytes % 8.7 %; Mean Corpuscular HGB Conc 34.8 g/dL (30-55); Mean Corpuscular Hemoglobin 30.1 pg (27-33); Mean Corpuscular Volume 86.4 fl (85-98); Mean Platelet Volume 9.9 fL (7.4-10.4); Monocytes # 0.9 10^3/uL (0.2-0.9); Neutrophils # 11.77 10^3/uL (1.8-7.7); Neutrophils % 83.6 %; Nucleated Red Blood Cells % 0 %; Platelet Count 253 10^3/cmm (157-399); Red Blood Count 5.15 10^6/uL (3.85-5.65); Red Cell Distribution Width 12.3 % (12.1-15.1); White Blood Count 14.07 10^3/uL (3.29-11.43)
--- NOTE | 2024-07-16 22:44 | ECG_ITS ---
[facility] Test Date: 2024-07-16 Pat Name: Lia Holm Department: Room: Gender: Female Rosin Barrel Filler: : 1965 Requested By: Renny Shepard Order Number: [id number] Danial MD: Jagdish Montoya M.D. Measurements Intervals [place] Rate: 65 P: 34 NM: 192 QRS: -5 QRSD: 101 T: 18 QT: 416 QTc: 434 Interpretive Statements SINUS RHYTHM MODERATE VOLTAGE CRITERIA FOR LVH, CONSIDER NORMAL VARIANT [MEETS CRITERIA IN ONE OF: R(aVL), S(V1), R(V5), R(V5/V6)+S(V1)] Compared to ECG 03/11/2022 23:26:36 Sinus bradycardia no longer present First degree AV block no longer present T-wave abnormality no longer present Electronically Signed On 07-17-2024 12:03:38 CDT by Jagdish Montoya M.D. [id number]
[2024-07-16] MEDS: iohexol 350 mg/mL 500 mL Btl (per mL) IV (23:05)
[2024-07-16 23:06] LABS: Troponin(5th) Baseline < 6 ng/L (0-10)
[2024-07-16 23:10] LABS: Alanine Aminotransferase 53 U/L (0-33); Albumin Level 4.2 g/dL (3.5-5.2); Alkaline Phosphatase 154 U/L (35-105); Anion Gap 15.7 (5-19); Aspartate Amino Transferase 111 U/L (0-32); Blood Urea Nitrogen 13 mg/dL (6-20); Calcium 8.9 mg/dL (8.5-10.5); Carbon Dioxide 22 mmol/L (22-29); Chloride 109 mmol/L (98-107); Creatinine Clr Calc Pharmacy 98.5122; Globulin 1.8 g/dL (1.3-4.6); Glomerular Filtration Rate 102.3 mL/min (90-130); Glucose 113 mg/dL (65-115); Lipase 262 U/L (13-60); Osmolality Calculated 297 mOsm/kg (285-295); Potassium 3.7 mmol/L (3.5-5.1); Sodium 143 mmol/L (136-145); Total Bilirubin 0.7 mg/dL (0.15-1.2)
[2024-07-17 00:16] VITALS: BP 172/97; PULSE 61; RESP 16; O2SAT 97
[2024-07-17 00:19] LABS: Charge for UA Resulting for Rev
[2024-07-17 00:25] LABS: Bilirubin Urine Negative (Negative); Blood Urine Negative (Negative); Glucose Urine UA Negative (Normal); Ketones Urine Trace (Negative); Leukocyte Esterase Urine Negative (Negative); Nitrate Urine Negative (Negative); Protein Urine 1+ (Negative); Urine Appearance Clear (CLEAR); Urine Color Yellow (Yellow); pH Urine 5.5 (5-7)
[2024-07-17 00:26] LABS: Specific Gravity, Urine >= 1.099 (1.005-1.030)
[2024-07-17] MEDS: HYDROcodone-acetaminophen 5-325 mg Tablet 1 TAB PO (00:41)
[2024-07-17 00:47] VITALS: BP 179/98; PULSE 62; RESP 16; O2SAT 97
[2024-07-17 00:48] LABS: Amorphous Sediment Urine TRACE /hpf; Bacteria Urine 1+ /hpf; Hyaline Casts Urine 0-4 /lpf; RBC Urine 0-4 /hpf (0-2); UA Manual Slide Review YES
--- NOTE | 2024-07-17 12:30 | DCPLANNER ---
messaged gen surg for er f/u
== END 2024-07-17 00:48 | disposition home or self-care (01) ==
PROVIDERS: Emergency Provider Nurse Practitioner Family; PCP Family Medicine
DX: K80.20 Calculus of gallbladder without cholecystitis without obstruction (principal); I10 Essential (primary) hypertension
CPT/HCPCS: 71045; 74177; 80053; 81003; 81015; 83690; 84484; 85025; 93005; 99285; Q9967

== ENCOUNTER → 2025-05-18 08:56 | Outpatient (BNVA) | payer OTHER, SELFPAY | PROVIDERS: PCP Family Medicine; Visit Provider Family Medicine | DX: I10 Essential (primary) hypertension (principal); E03.9 Hypothyroidism, unspecified; Z79.890 Hormone replacement therapy; G47.33 Obstructive sleep apnea (adult) (pediatric) | CPT/HCPCS: 80053; 82306; 84443; 85025 ==